=== PATIENT | male | born 1935 | race Caucasian/White ===

== ENCOUNTER 2023-03-07 10:19 | Outpatient (CLI) | payer MEDICARE | END 2023-03-07 10:20 | disposition short-term general hospital (02) | LOC: EMS 10:19 | DX: R45.1 Restlessness and agitation (principal); R46.89 Other symptoms and signs involving appearance and behavior; M54.50 Low back pain, unspecified | CPT/HCPCS: A0425; A0429; A0888 ==

== ENCOUNTER 2023-03-13 19:41 | Outpatient (CLI) | payer MEDICARE | END 2023-03-13 19:42 | disposition short-term general hospital (02) | LOC: EMS 19:41 | DX: M25.551 Pain in right hip (principal); W18.30XA Fall on same level, unspecified, initial encounter; Y92.099 Unspecified place in other non-institutional residence as the place of occurrence of the external cause; R41.0 Disorientation, unspecified | CPT/HCPCS: A0425; A0427 ==